=== PATIENT | male | born 1955 | race Caucasian/White ===

== ENCOUNTER 2021-07-20 20:17 | Emergency (ER) | payer MEDICAID, SELFPAY ==
[2021-07-20 20:17] VITALS: BP 133/100; PULSE 108; RESP 26; TEMP 36.1; O2SAT 98; BMI 23.0
--- NOTE | 2021-07-20 22:04 | EX.ED.VIS.PS ---
HPI HPI - Psych History of Present Illness Chief Complaint: Anxiety Informant: patient and friend Narrative Narrative: 66-year-old male presents the emergency room stating he is having a panic attack. He tells me that he is under legal strain. He apparently was incarcerated in [facility] recently. He did not elaborate on what the criminal complaint is. While he was incarcerated he was taken to [facility] having a panic attack. He states that he was given something which helped calm him down but he was not given a prescription. He states that today he has had 5 packages of cigarettes with 8 pots of coffee. He states he has a headache. He states that he cannot take this anymore. He denies suicidal ideation. The patient also reports that he is having flashbacks from an incident that happened in the but does not elaborate. [facility] Medical History Anxiety Emphysema lung High cholesterol Hypertension PTSD (post-traumatic stress disorder) Home Medications lorazepam [Ativan] 1 mg PO TID PRN #10 tab 07/20/21 [Rx Last Taken Unknown] Allergy/AdvReac Type Severity Reaction Status Date / Time No Known Allergies Allergy Verified 07/20/21 20:19 Surgical History no surgical history Social History (Updated 07/20/21 @ 22:[address] Yoan Hernandez DO) current gender identity: male Smoking Status: Current every day smoker tobacco type: cigarettes ROS ROS ED Constitutional Constitutional ED: Denies chills or weight loss Eyes Eyes: Denies change in vision or diplopia ENT ENT ED: Denies ear pain, rhinorrhea or sore throat Cardiovascular Cardiovascular: Denies chest pain, orthopnea, palpitations or racing heartbeat Respiratory/Chest Respiratory/Chest: Denies cough, dyspnea or orthopnea Gastrointestinal Gastrointestinal: Denies abdominal pain, diarrhea, nausea or vomiting Genitourinary Genitourinary ED: Denies dysuria, hematuria or urinary frequency Musculoskeletal Musculoskeletal: Denies arthralgias or myalgias Integumentary Denies abscess or rash Neurologic Neurologic: Denies headache(s) or weakness Psychiatric Psychiatric: Reports anxiety and depression; Denies suicidal ideation or suicidal thoughts Endocrine Endocrinology: Denies polydipsia, polyphagia or polyuria Allergic/Immunologic Allergic/Immunologic ED: Denies mouth swelling, tongue swelling or urticaria EXAM Physical Exam Const Vital Signs: 07/20/21 20:17 07/20/21 23:22 Temperature 97.0 F L Temperature Source Temporal Pulse Rate 108 H 81 Respiratory Rate 26 H 14 Blood Pressure 133/100 H 120/74 Blood Pressure Mean 111 89 Pulse Ox 98 97 Oxygen Delivery Method Room Air Room Air Positive well nourished and well developed General Appearance ED: well developed HEENT Reports normocephalic, head/scalp atraumatic, TM's clear and moist mucous membranes atraumatic Tympanic Membrane ED: Yes TM's clear Eyes PERRL and EOMs intact bilaterally Neck no lymphadenopathy, supple and no JVD Resp normal respiratory effort and clear to auscultation bilaterally Cardio regular rate, regular rhythm and no murmurs Rate: regular rate and tachycardic GI normal to inspection, nondistended, normoactive bowel sounds, non-tender and non-distended Palpation: soft Back/Spine no CVA tenderness and normal ROM Extremity normal to inspection General Extremety ED: Negative for edema General Extremity: Negative for edema Neuro oriented x3 and CN's II-XII intact bilaterally Sensorium / Orientation: alert Motor Exam: strength 5/5 throughout Psych Psych Narrative: Patient holding his head rocking back and forth. Activity / Motor Behavior: restless Speech: rapid Mood & Affect: depressed, anxious and tearful Skin no rashes or lesions noted and no wounds MDM MDM MDM Narrative Medical decision making narrative: Patient received Geodon and Ativan. Patient was able to get some sleep. He is feeling better but he is a bit unsteady on his feet. He states his headache has resolved. Patient again mentions that he is not suicidal or homicidal. I believe the patient can benefit from outpatient counseling. Him to reach out to the counseling center and refer him. I will write for a few Ativan to have on hand. We talked about other ways to cope such as going for a walk incentive chain smoking toss a baseball or otherwise preoccupy his hands. Patient notes understanding the plan. When he is more steady on his feet we will discharge him. Discharge Plan Triage Chief Complaint: Anxiety ED Provider: Yoan Hernandez Dx/Rx/DC Orders Clinical Impression: Situational depression, Panic attack Instructions: ED Panic Attack Prescriptions: New lorazepam [Ativan] 1 mg tablet 1 mg PO TID PRN (Reason: anxiety) Qty: 10 RF: 0 Primary Care Provider: Care Physician,No Primary Referrals: Counseling,Center [GROUP OF PHYSICIANS] - As soon as possible Care Physician,No Primary [Primary Care Provider] - Disposition Disposition: Home, Self Care
[2021-07-20] MEDS: Ziprasidone IM 20 MG/ML VIAL 10 MG IM (22:05)
[2021-07-20] MEDS: LORazepam 1 MG Tablet PO (22:10)
[2021-07-20 23:22] VITALS: BP 120/74; PULSE 81; RESP 14; O2SAT 97
--- NOTE | 2021-07-21 00:16 | ED.RN ---
I HAVE TRIED CONTACTING CRISIS FOR THIS PATIENT AND I HAVE CALLED MULTIPLE TIMES, THEY ARE NOT PICKING UP THE PHONE NOR ANSWERING, I HAVE TRIED THE OTHER NUMBERS THAT ARE IN THE ROLODEX AND NOBODY IS ANSWERING THOSE EITHER.
--- NOTE | 2021-07-21 01:51 | ED.RN ---
pt ambulate in [place] without getting lightheaded. was a little unsteady by able to assist without difficulty. roommate barby rports that he is comfortable taking pt home.
[2021-07-21 01:53] VITALS: BP 120/84; PULSE 84; RESP 16; O2SAT 99
== END 2021-07-21 01:54 | disposition home or self-care (01) ==
PROVIDERS: Emergency Provider Emergency Medicine
DX: F43.21 Adjustment disorder with depressed mood (principal); F41.9 Anxiety disorder, unspecified; F43.10 Post-traumatic stress disorder, unspecified; I10 Essential (primary) hypertension; F17.210 Nicotine dependence, cigarettes, uncomplicated
CPT/HCPCS: 96372; 99283; J3486